=== PATIENT | male | born 1980 | race Caucasian/White ===

== ENCOUNTER 2018-05-26 11:11 | Emergency (ER) | payer MEDICAID ==
[~2018-05-26] VITALS: Ht 172.7 cm; Wt 70.8 kg
[2018-05-26 11:18] VITALS: BP 122/71; Ht 172.7 cm; Wt 70.8 kg
== END 2018-05-26 12:11 | disposition home or self-care (01) ==
LOC: ED 11:11
DX: R51 Headache (principal); A74.9 Chlamydial infection, unspecified
CPT/HCPCS: 87491; 87591; J0696

== ENCOUNTER 2018-10-22 12:09 | Emergency (ER) | payer MEDICAID ==
[~2018-10-22] VITALS: Ht 172.7 cm; Wt 72.6 kg
[2018-10-22 12:13] VITALS: BP 113/72; Ht 172.7 cm; Wt 72.6 kg
== END 2018-10-22 13:26 | disposition home or self-care (01) ==
LOC: ED 12:09
DX: H60.502 Unspecified acute noninfective otitis externa, left ear (principal)